=== PATIENT | male | born 1965 | race Caucasian/White ===

== ENCOUNTER 2020-05-17 14:17 | Outpatient (CLI) | payer OTHER, SELFPAY | END 2020-05-17 14:18 | disposition home or self-care (01) | LOC: ANHBWCAUD 14:18 | PROVIDERS: PCP Physician Assistant; Visit Provider Otolaryngology | DX: H93.19 Tinnitus, unspecified ear (principal); H90.41 Sensorineural hearing loss, unilateral, right ear, with unrestricted hearing on the contralateral side; H90.72 Mixed conductive and sensorineural hearing loss, unilateral, left ear, with unrestricted hearing on the contralateral side | CPT/HCPCS: 92557; 92567 ==

== ENCOUNTER 2021-06-19 15:34 | Emergency (ER) | payer OTHER, SELFPAY ==
--- NOTE | ~2021-06-19 | CT_ITS ---
EXAMINATION: CT abdomen pelvis w con DATE: 06/19/2021 17:44 INDICATION: Epigastric abdominal pain, fever TECHNIQUE: Computed tomography (CT) of the abdomen and pelvis was performed with 100 CC Omnipaque 350 intravenous contrast. Automated exposure control and iterative reconstruction technique were employe d. Exam dose: 1273.95 mGy-cm total exam DLP. COMPARISON: None. FINDINGS: Mild discoid atelectasis or scarring in the left lung base. No consolidation in the lower i ncluded lower lung zones. Coronary artery calcifications. Heart size is borderline. No pericardial or pleural effusion. Diffuse hepatic steatosis. No hepatic, splenic, pancreatic, and adrenal space-occupying mass lesion. 1.6 cm gallstone. No gallbladder wall thickening or pericholecystic fluid or fat stranding. No bile d uct or pancreatic duct dilatation. Mild right renal scarring. 1.6 cm right renal cyst. Normal caliber of the abdominal aorta. No intraperitoneal or retroperitoneal or pelvic mass lesion or adenopathy or ascites. Normal appendix. There is diverticulosis of right and to a greater extent left colon, particularly numerous in the chris cending and sigmoid colon. No CT evidence of diverticulitis. No bowel obstruction, bowel wall thicken ing, pneumatosis or intraperitoneal free air. Moderate prostate enlargement. Bilateral fat-containing inguinal hernias. Small fat-containing umbilical hernia. Diffuse idiopathic skeletal hyperostosis of the included lower thoracic spine. There are degenerative changes of the lumbar spine as well, particularly at the apophyseal joints. Degenerative change at t he hip joints. No suspicious osteolytic or osteoblastic lesions are noted. IMPRESSION: Hepatic steatosis Cholelithiasis 1.6 cm right renal cyst, renal scarring Diverticulosis of the colon Normal appendix Reviewed, dictated and finalized at [facility]. Reviewed, dictated and finalized at [facility].
--- NOTE | ~2021-06-19 | XR_ITS ---
EXAMINATION: XR chest 1V portable DATE: 06/19/2021 16:26 INDICATION: Fever. TECHNIQUE: A single frontal view of the chest was obtained. COMPARISON: None. FINDINGS: Sensitivity is decreased by obesity. There is no pneumonia, pleural effusion, or pneumothor ax. The heart size is normal. There is a prominent left paracardial fat pad. IMPRESSION: 1. No acute cardiopulmonary disease. Reviewed, dictated and finalized at [facility].
[2021-06-19 15:42] VITALS: BP 103/67; PULSE 93; RESP 18; TEMP 37.7; O2SAT 97
[2021-06-19 15:54] VITALS: BP 103/67; PULSE 93; RESP 18; TEMP 37.2; O2SAT 97
--- NOTE | 2021-06-19 16:17 | ED.FEVER ---
HPI - Fever General Chief Complaint: Fever Stated Complaint: Fever? Time Seen by Provider: 06/19/21 15:56 Source: patient Mode of arrival: ambulatory Limitations: no limitations History of Present Illness HPI Narrative: This is a 56 year old male that presents to the ER for fever. Reports he was seen at [facility] 2 days ago. Diagnosed with pneumonia and started on doxycycline. He has been taking this as prescribed with continued fevers. His primary doctor told him to come here to be evaluated once again. Reports some nausea and a mild cough. Otherwise denies any focalizing symptoms. He is not COVID or influenza vaccinated. Denies sore throat, congestion, otalgia, rashes, abdominal pain, vomiting, or dysuria. Related Data Home Medications Medication Instructions Recorded Confirmed amlodipine 10 mg tablet 10 mg PO DAILY 05/08/20 aspirin 81 mg tablet,delayed 81 mg PO DAILY 05/08/20 release atorvastatin 40 mg tablet 40 mg PO DAILY 05/08/20 citalopram 20 mg tablet 20 mg PO DAILY 05/08/20 clopidogrel 75 mg tablet 75 mg PO DAILY 05/08/20 lisinopril 40 mg tablet 40 mg PO DAILY 05/08/20 metoprolol succinate 100 mg 100 mg PO DAILY 05/08/20 tablet,extended release 24 hr tramadol 50 mg tablet 50 mg PO Q6H PRN 05/08/20 Allergies Allergy/AdvReac Type Severity Reaction Status Date / Time Penicillins Allergy Unknown Unknown Verified 05/27/20 14:36 Review of Systems Review of Systems: CONSTITUTIONAL: Reports fever, and sweats. ENT: Denies rhinorrhea, congestion, sore throat CARDIOVASCULAR: Denies chest pain, or edema. RESPIRATORY: Reports cough. Denies dyspnea. GASTROINTESTINAL: Reports nausea. Denies abdominal pain, vomiting, or diarrhea. GENITOURINARY: Denies dysuria SKIN: Denies rash NEUROLOGIC: Denies numbness, or weakness. All systems reviewed & are unremarkable except as noted in HPI and below PMFSH Past Medical History Medical History (Updated 06/19/21 @ 19:09 by Margaret Jane PA-C) History of hyperlipidemia History of hypertension Family History Family History (Updated 05/08/20 @ 14:52 by Marisa Calderon PROCUREMENT DIRECTOR) Father Diabetes mellitus Hypertension Heart disease Mother Cancer Diabetes mellitus Heart disease Thyroid activity decreased Social History Social History (Reviewed 05/27/20 @ 14:37 by SORAYA Sarabia Smoking status: Never smoker Second hand tobacco smoke exposure: No Alcohol intake: never Substance use: never Exam Narrative: GENERAL: Well-appearing, well-nourished, and in no acute distress. HEAD: Normocephalic, atraumatic. EYES: EOMI. ENT: Nares clear, no rhinorrhea or epistaxis. Mucous membranes moist. Oropharynx without tonsillar hypertrophy exudate or other lesions. Bilateral TMs pearly medel non-bulging NECK: Supple. No adenopathy or masses. CHEST: Clear to auscultation. No respiratory distress. No wheezes rales or rhonchi HEART: Regular rate and rhythm. No murmur heard. Normal peripheral pulses. ABDOMEN: Soft, nontender, nondistended, normal active bowel sounds. EXTREMITIES: Normal range of motion. No edema. SKIN: Warm, dry, no rash. NEURO: No focal deficits. Alert and oriented x3. PSYCH: Normal mood and affect Course Vital Signs Vital signs: Vital Signs Temperature 99.8 F H 06/19/21 15:42 Pulse Rate 93 06/19/21 15:42 Respiratory Rate 18 06/19/21 15:42 Blood Pressure 103/67 06/19/21 15:42 Pulse Oximetry 97 06/19/21 15:42 Temperature 99.0 F 06/19/21 15:54 Pulse Rate 93 06/19/21 15:54 Respiratory Rate 14 06/19/21 16:45 Blood Pressure 103/67 06/19/21 15:54 Pulse Oximetry 97 06/19/21 15:54 MDM - Fever MDM Narrative Medical decision making narrative: Patient presents to the emergency department for fevers noted over the last couple of days. Evaluated at [facility] for this and discharged on antibiotics for pneumonia. He has been afebrile while in the ED here. He is nontoxic-appearing. His
[2021-06-19 16:36] LABS: Basophils Percent Auto 0.7 % (0.2-1.2); Eosinophils Percent Auto 0.9 % (0-4.4); Hematocrit 41.5 % (42.0-52.0); Hemoglobin 13.2 g/dL (14.0-18.0); Immature Granulocyte Absolute 0.03 K/mm3 (0.00-0.031); Immature Granulocyte Percent A 0.7 % (0-0.5); Lymphocytes Absolute Auto 0.85 K/mm3 (0.9-3.2); Lymphocytes Percent Auto 18.6 % (18.3-44.2); Mean Corpuscular HGB Conc 31.8 g/dl (32-36); Mean Corpuscular Hemoglobin 27.9 pg (26-34); Mean Corpuscular Volume 87.7 fl (80-100); Mean Platelet Volume 8.9 fl (7.4-10.4); Monocytes Absolute Auto 0.4 K/mm3 (0.1-0.6); Monocytes Percent Auto 7.9 % (2.6-8.5); Neutrophils Absolute Auto 3.3 K/mm3 (1.3-6.7); Neutrophils Percent Auto 71.2 % (45.5-73.1); Platelet Count Result 318 k/mm3 (150-375); Red Blood Count 4.73 M/mm3 (4.6-6.20); Red Cell Distribution Width 15.6 % (11.5-14.5); White Blood Count 4.6 K/mm3 (4.5-10.0)
[2021-06-19 16:44] LABS: Add Urine Microscopic? YES; Appearance Urine Clear (Clear); Bilirubin Urine Negative (Negative); Blood Urine 1+ (Negative); Color Urine Yellow (Yellow); Glucose Urine UA Negative (Negative); Ketones Urine Negative (Negative); Leukocyte Esterase Ur Negative LEU/UL (Negative); Lipase 67 U/L (23-300); Mucus Urine Few /lpf; Nitrate Urine Negative (Negative); Protein Urine 1+ mg/dL (Negative); RBC Urine 0-2 /hpf (0-2); Specific Grav Ur 1.016 (1.001-1.035); Urobilinogen Urine Negative mg/dL (<2.0)
[2021-06-19 16:45] VITALS: RESP 14
[2021-06-19 16:58] LABS: INR 1.1; Prothrombin Time 13.6 Seconds (11.1-14.7)
[2021-06-19 16:59] LABS: Partial Thromboplastin Time 28.6 SECONDS (22.3-36.8)
[2021-06-19 17:18] LABS: Alanine Aminotransferase 31 U/L (4-50); Albumin Level 4.1 g/dL (3.5-5.1); Alkaline Phosphatase 136 U/L (38-126); Anion Gap 7 mmol/L (8-16); Aspartate Amino Transferase 40 U/L (17-59); Bilirubin,Total 0.4 mg/dL (0.2-1.3); Blood Urea Nitrogen 9 mg/dL (9-20); Carbon Dioxide 29 mmol/L (22-30); Chloride 101 mmol/L (98-107); Estimated CRCL calculation 93 ml/min; Estimated Glomerular Filt Rate > 60; Glucose 133 mg/dL (65-110); Sodium 137 mmol/L (137-145)
[2021-06-19 17:21] LABS: Influenza A QL RT-PCR Negative (Negative); Influenza B QL RT-PCR Negative (Negative); SARS-CoV-2 RNA PCR Negative
[2021-06-19] MEDS: SODIUM CHLORIDE 0.9% IV 500 ML 999 ML IV CONT (17:47)
[2021-06-19 19:59] VITALS: BP 117/74; PULSE 87; RESP 18; TEMP 36.9; O2SAT 99
== END 2021-06-19 20:00 | disposition home or self-care (01) ==
PROVIDERS: Physician Assistant; Emergency Provider Emergency Medicine; PCP Physician Assistant
DX: R50.9 Fever, unspecified (principal); J18.9 Pneumonia, unspecified organism; Z20.822 Contact with and (suspected) exposure to COVID-19; E78.5 Hyperlipidemia, unspecified; I10 Essential (primary) hypertension; K76.0 Fatty (change of) liver, not elsewhere classified; K57.90 Diverticulosis of intestine, part unspecified, without perforation or abscess without bleeding; Z79.01 Long term (current) use of anticoagulants
CPT/HCPCS: 36415; 71045; 74177; 80053; 81001; 83605; 83690; 85025; 85610; 85730; 86140; 87040; 87502; 96361; 96374; 99284; C9803; J0131; J7040; Q9967; U0003; U0005